=== PATIENT | female | born 2000 | race Caucasian/White ===

== ENCOUNTER 2021-08-30 08:43 | Emergency (ER) | payer OTHER, SELFPAY ==
[2021-08-30] VITALS (23 sets, daily range): BP systolic 68–151; BP diastolic 36–82; PULSE 100–140; RESP 4–35; TEMP 36.4; O2SAT 88–98
--- NOTE | 2021-08-30 08:45 | DI.RAD_ITS ---
Exam(s) XR PORTABLE CHEST AP EXAM: XR PORTABLE CHEST AP CLINICAL HISTORY: shortness of breath, wheeze. TECHNIQUE: 2D digital imaging was performed. COMPARISON: CR CHEST 2 VIEWS PA,LAT from 04/17/2013 FINDINGS: Single AP portable view. Heart size is upper normal. The mediastinum is not widened. Lungs are clear. No infiltrates nor obvious pleural effusions. IMPRESSION: No acute pulmonary findings on this single AP portable view of the chest. DATA REPOSITORY: RADIATION DOSE DELIVERED: All CT scans at this facility use at least one of these dose optimization techniques: automated exposure control; mA and/or kV adjustment per patient size (includes targeted e xams where dose is matched to clinical indication); or iterative reconstruction.
--- NOTE | 2021-08-30 08:46 | ED.GENADUL_ITS ---
Discharge Plan Disposition Patient Disposition: HOME Condition: Improving Discharge Details Clinical Impression: Exacerbation of reactive airway disease Primary Care Provider: Vaishali Park ED Provider: Ronnie Perez Home Meds and New Rx's Prescriptions: New prednisone 50 mg tablet 50 mg PO DAILY 5 Days Qty: 5 0RF montelukast [Singulair] 10 mg tablet 10 mg PO DAILY Qty: 30 0RF albuterol sulfate 90 mcg/actuation HFA aerosol inhaler 2 puff inhalation Q6H PRNQty: 6.7 0RF Continued cetirizine [Zyrtec] 10 mg tablet 10 mg PO DAILY Qty: 30 2RF albuterol sulfate 90 mcg/actuation HFA aerosol inhaler 2 puff inhalation Q6H PRN (Reason: shortness of breath or wheezing) Qty: 6.7 3RF dextroamphetamine-amphetamine [Adderall XR] 30 mg capsule,extended release 24hr 30 mg PO DAILY MDD 30MG Qty: 30 0RF sertraline 100 mg tablet 100 mg PO DAILY Qty: 90 4RF Rx Instructions: Take 1 tablet daily mupirocin 2 % ointment 1 applic topical TID PRN (Reason: skin irritation) Qty: 22 1RF Discharge Instructions Instructions: Reactive Airways Disease (ED) Additional Instructions: We will ask our care management team to arrange a follow-up for you in pulmonology clinic. Please begin Singulair as prescribed once daily for 30 days. Take prednisone as prescribed. May continue your inhaler if needed up to 4 times daily, as previously prescribed. I have prescribed you a new replacement inhaler as well. Your work-up in the emergency department included blood work, EKG, chest x-ray, and influenza/COVID test which was negative. Return to the emergency room for any acute concerns. Medical Decision Making This is a 21-year-old female with a history of mild reactive airway disease, with home rescue inhaler. Presents with 4 weeks of progressive onset mild wheeze that has been increasing over the past 2 to 3 days with increased use of home inhaler. She has not had a fever or productive cough. No leg pain, chest pain, or pain with breathing. She is not . Patient arrives with a pulse approximately 130, actively tachypneic with primarily expiratory wheezes. She is not hypoxic with an oxygenation on room air of 96%. Diagnosis includes exacerbation of reactive airway disease, bronchitis, must exclude/consider PE. The patient had IV access established, given parenteral steroids, magnesium, inhaled DuoNeb, and referred for laboratory and chest x- ray. A screening EKG was obtained. Chest x-ray is unremarkable. She has a slightly elevated white blood cell count 13, hematocrit 44, platelets 386. D-dimer is negative. Chemistries unremarkable. Flu/Covid negative. Patient is improved following medications. She states she feels better. She has some mild persistent tachycardia, but is able to oxygenate normally with the room air oxygenation of 94 to 95%. Peak flow was obtained by respiratory therapy at approximately 500. Patient does describe some chronicity to her reactive airway disease of at least 4 to 6-week. I will trial her on 30 days of Singulair in addition to a brief burst of systemic corticosteroids. I will refer her to pulmonology. She was last seen as a child in 2017. She is stable and improving at this time. HPI General Mode of arrival: ambulatory . Date/Time Provider Initiated Documentation: 08/30/21 08:45 . Limitations to Documentation: no limitations . Information obtained by: patient . History of Present Illness 21 year old F presents to the emergency department with the chief complaint of Asthma attack, described as moderate and similar to prior episodes, and is localized to the chest. Patient reports no radiation. Patient started experiencing this day(s) and it has been intermittent. Patient notes denies fever/chills. Patient did receive the following treatments prior to arrival, other (Home inhalers) Related Data Home Medications Medication Instructions Recorded Confirmed mupirocin 2 % topical ointment 1 applic TOPICAL TID PRN #22 g 02/09/21 08/30/21 sertraline 100 mg tablet 100 mg PO DAILY #90 tab 02/09/21 08/30/21 albuterol sulfate 90 mcg/actuation 2 puff INHALATION Q6H PRN #6.7 g 07/06/21 08/30/21 aerosol inhaler cetirizine 10 mg tablet (Zyrtec) 10 mg PO DAILY #30 tab-cap 07/06/21 08/30/21 dextroamphetamine-amphetamine ER 30 mg PO DAILY #30 cap MDD 30MG 07/06/21 08/30/21 30 mg 24hr capsule,extend release (Adderall XR) albuterol sulfate 90 mcg/actuation 2 puff INHALATION Q6H PRN #6.7 g 08/30/21 aerosol inhaler montelukast 10 mg tablet 10 mg PO DAILY #30 tab 08/30/21 (Singulair) prednisone 50 mg tablet 50 mg PO DAILY 5 Days #5 tab 08/30/21 Previous Rx's Medication Instructions Recorded mupirocin 2 % topical ointment 1 applic TOPICAL TID PRN #22 g 02/09/21 sertraline 100 mg tablet 100 mg PO DAILY #90 tab 02/09/21 albuterol sulfate 90 mcg/actuation 2 puff INHALATION Q6H PRN #6.7 g 07/06/21 aerosol inhaler dextroamphetamine-amphetamine ER 30 mg PO DAILY #30 cap MDD 30MG 07/06/21 30 mg 24hr capsule,extend release (Adderall XR) albuterol sulfate 90 mcg/actuation 2 puff INHALATION Q6H PRN #6.7 g 08/30/21 aerosol inhaler montelukast 10 mg tablet 10 mg PO DAILY #30 tab 08/30/21 (Singulair) prednisone 50 mg tablet 50 mg PO DAILY 5 Days #5 tab 08/30/21 Allergies Allergy/AdvReac Type Severity Reaction Status Date / Time amoxicillin [From Augmentin] Allergy Hives Unverified 08/30/21 09:29 clavulanic acid Allergy Hives Unverified 08/30/21 09:29 [From Augmentin] Review of Systems Narrative: See HPI PFSH All Active Problems (Updated 08/30/21 @ 10:09 by Ronnie Perez MD) Exacerbation of reactive airway disease (Acute) ADHD (attention deficit hyperactivity disorder) (Chronic) IBS (irritable bowel syndrome) (Chronic) Generalized anxiety disorder (Acute) Major depressive disorder (Chronic) Obesity (Chronic) Nexplanon in place (Chronic) Inserted 2018 at [facility] Allergic rhinitis (Acute) Medical History Pilonidal abscess of lorri cleft Surgical History S/P bilateral breast reduction (05/16/17) Family History Mother Asthma Hypertension Alcohol abuse Father Alcohol abuse Depression Osteomalacia Substance abuse Sister No problems noted. Maternal Grandfather Colon cancer Maternal Grandmother No problems noted. Paternal Grandfather No problems noted. Paternal Grandmother No problems noted. Social History Smoking/Tobacco Use Status: Never Second Hand Exposure: Yes Smoking risk assessment performed?: Yes Alcohol Intake: current Alcohol Intake frequency: holidays/special occasions only Alcohol type: hard liquor Drug use: Daily Substance use type: marijuana Caregiver/Support person: No Household members: other Details: 4 Housing: house Communication Needs: None Do you need help understanding health information?: Rarely Pets and animals: Yes Sexually active: No Do you think of yourself as: bisexual Current gender identity: female What is your relationship status?: never How often do you talk on the phone with friends or family?: three or more times per week How often do you get together with friends or relatives?: three or more times per week How often do you attend scientology or taoism services?: decline to answer Do you belong to any clubs or organized social groups?: no Panel score (0-1 are the most socially isolated patients): 1 What type of physical activity do you participate in: none Duration: decline to answer Frequency: decline to answer Consuelo/Nondenominational: Agnostic Special consuelo needs: No Seatbelt use: always Helmet use: Yes Helmet use: always Drive intox or ride w/intox driver 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 Pleasant, well groomed, interactive. HEAD: Normocephalic, atraumatic ENT: Mucous membranes moist, oropharynx unremarkable, External ear exam unremarkable EYES: PERRL, EOMI NECK: Full ROM, no SUE, no menigismus CHEST/RESP: Nontender, bilateral end expiratory wheeze, subtle inspiratory wheeze initial exam CARDIOVASCULAR: Regular and tachycardic, no murmur, rub malvin. 2+ Rad pulse bilateral ABDOMEN: Soft, nontender, no mass. +Bowel sounds EXT: Full ROM, no edema, no rash Neuro: Grossly normal neurologic exam, conversant, interactive. Psych: Speech fluent, thoughts congruent, affect normal
--- NOTE | 2021-08-30 09:00 | RT.EKG_ITS ---
APPROVED REPORT Exam: Resting ECG Reason for Exam: shortness of breath Patient Location: E HR:115 bpm ECG Measurements Heart Rate 115 AXIS CA 130 P 52 QRSd 93 QRS 70 QT 336 T 9 QTc 464 Conclusion Sinus tachycardia...rate> 99
[2021-08-30] MEDS: MAGNESIUM SULFATE 2 GM/50 ML BAG IVPB (09:11)
[2021-08-30] MEDS: Albuterol/Ipratropium 3 ML UPD VIAL UPD ×2 (09:28→09:56)
[2021-08-30] MEDS: methylPREDNISolone SUCC 125 MG VIAL IVP (09:28)
[2021-08-30 09:35] LABS: Abs Immature Grans 0.04 10^3/uL (0.0-0.06); Absolute Basophil Count 0.17 10^3/uL (0.0-0.2); Absolute Lymphocyte Count 2.41 10^3/uL (1.2-3.4); Absolute Monocyte Count 0.66 10^3/uL (0.1-0.8); Absolute Neutrophil Count 7.46 10^3/uL (1.2-6.7); Basophils % 1.3; Eosinophils % 18.8; HCT 44.3 % (36.0-46.0); HGB 14.2 g/dL (11.2-15.7); Immature Grans % 0.3; Lymphocytes % 18.2; MCHC 32.1 % (32.0-36.0); MCV 84.2 fL (80-95); MPV 9.8 fL (8.0-11.0); Neutrophils % 56.4; Nucleated RBC 0 %; Platelet Count 386 10^3/uL (130-400); RBC 5.26 10^6/uL (3.93-5.22); RDW 13.3 % (11.7-14.6); RDW-SD 41.3 fL; WBC 13.22 10^3/uL (4.4-10.8)
[2021-08-30 09:37] LABS: Absolute Eosinophil Count 2.49 10^3/uL (0.0-0.7)
[2021-08-30 09:49] LABS: Diff Comment Agrees w/ Instrument; RBC Morphology Normal
[2021-08-30 09:55] LABS: ALT 19 U/L (14-59); AST 13 U/L (15-37); Alkaline Phosphatase 73 U/L (46-116); Anion Gap 9.1 mmol/L (3-11); BUN 12 mg/dL (7-18); Bilirubin, Total 0.7 mg/dL (0.2-1.0); CO2 23.9 mmol/L (21.0-32.0); CREATININE 0.9 mg/dL (0.55-1.02); Calcium 8.9 mg/dL (8.5-10.1); Chloride 107 mmol/L (98-107); Glucose 89 mg/dL (74-106); Potassium 3.8 mmol/L (3.5-5.1); Sodium 140 mmol/L (136-145); Total Protein 8.3 g/dL (6.4-8.2)
[2021-08-30 10:07] LABS: D-Dimer 223 ng/mlFEU (<500)
--- NOTE | 2021-08-30 10:17 | NUR.NOTE ---
Nursing Note: Pt info given to Pulmonology & care management to be seen in a few weeks for chronic VS acute asthma. Jessica, ED
[2021-08-30] MEDS: Normal Saline 1,000 ML 1000 ML IV (10:30)
[2021-08-30 10:34] LABS: Bilirubin Negative (Negative); Blood Negative (Negative); Clarity Clear (Clear); Glucose Negative (Negative); Ketones Negative (Negative); Leukocyte Esterase Negative (Negative); Nitrite Negative (Negative); Urobilinogen 0.2 EU/dL (Up TO 0.2)
[2021-08-30 10:39] LABS: COVID-19 PCR Negative (Negative); Influenza A PCR Negative (Negative); Influenza B PCR Negative (Negative); RSV PCR Negative (Negative)
[2021-08-30 10:41] LABS: Source Nasopharynx
[2021-08-30] MEDS: Levalbuterol 1.25 MG/3 ML UPD VIAL UPD (11:13)
[2021-08-30] MEDS: predniSONE 20 MG TAB (13:09)
[2021-08-30] MEDS: predniSONE 10 MG TAB (13:10)
== END 2021-08-30 13:30 | disposition home or self-care (01) ==
PROVIDERS: Emergency Provider Emergency Medicine; PCP Nurse Practitioner Family
DX: J45.901 Unspecified asthma with (acute) exacerbation (principal); R00.0 Tachycardia, unspecified; R06.02 Shortness of breath
CPT/HCPCS: 36415; 80053; 81025; 87637; 93005; 94640; 96361; 96365; 96366; 96375; 99284; 99285; 71045; 81003; 83735; 85025; 85379; 93010; J2930; J7512; J7614; J7620

== ENCOUNTER 2024-05-03 15:42 | Inpatient (IN) | payer OTHER, SELFPAY ==
[2024-05-03] VITALS (41 sets, daily range): BP systolic 141–160; BP diastolic 80–98; PULSE 113–147; RESP 15–32; TEMP 36.4–37.4; O2SAT 89–97
[2024-05-03] MEDS: Dexamethasone 4 MG TAB 8 MG PO (16:22)
[2024-05-03] MEDS: Albuterol/Ipratropium 3 ML UPD VIAL UPD ×6 (16:23→17:28)
--- NOTE | 2024-05-03 17:46 | DI.RAD_ITS ---
Exam(s) XR CHEST 2V PA LATERAL EXAM: XR CHEST 2V PA LATERAL CLINICAL HISTORY: sob TECHNIQUE: 2D digital imaging was performed. Two views. COMPARISON: CR XR PORTABLE CHEST AP from 08/30/2021 FINDINGS: HEART: Normal size. Aorta: Not dilated. PULMONARY VASCULATURE: Normal. MEDIASTINUM: Unremarkable. LUNGS: Increased density in the right perihilar region with streaky atelectasis extending anterolater ally. PLEURAL SPACE: No pleural effusion or pneumothorax. BONE:Unremarkable for age. SOFT TISSUES: Unremarkable. IMPRESSION: Right perihilar infiltrate/atelectasis. DATA REPOSITORY: RADIATION DOSE DELIVERED:
[2024-05-03] MEDS: Azithromycin 250 MG TAB 500 MG PO (18:33)
[2024-05-03 18:58] LABS: BE (Venous) -2 mmol/L (-2-3); HCO3 (Venous) 22 mmol/L (23-28); O2 Sat (Venous) 87 %; TCO2 (Venous) 20 mmol/L (24-29); pCO2 (Venous) 32 mmHg (41-51); pH (Venous) 7.44 (7.31-7.41); pO2 (Venous) 49 mmHg
[2024-05-03 18:59] LABS: Abs Immature Grans 0.06 10^3/uL (0.0-0.06); Absolute Eosinophil Count 0.25 10^3/uL (0.0-0.7); Absolute Lymphocyte Count 0.71 10^3/uL (1.2-3.4); Absolute Monocyte Count 0.32 10^3/uL (0.1-0.8); Basophils % 0.4 %; Eosinophils % 1.8 %; HCT 39.8 % (36.0-46.0); HGB 13.1 g/dL (11.2-15.7); Immature Grans % 0.4 %; Lymphocytes % 5.2 %; MCH 26.9 pg (27.0-33.0); MCHC 32.9 % (32.0-36.0); MCV 82 fL (80-95); MPV 9.4 fL (8.0-11.0); Monocytes % 2.3 %; Neutrophils % 89.9 %; Platelet Count 293 10^3/uL (130-400); RBC 4.87 10^6/uL (3.93-5.22); RDW-SD 41.3 fL; WBC 13.72 10^3/uL (4.4-10.8)
[2024-05-03] MEDS: MAGNESIUM SULFATE 2 GM/50 ML BAG IVINF (18:59)
[2024-05-03 19:04] LABS: Absolute Basophil Count 0.05 10^3/uL (0.0-0.2); Absolute Neutrophil Count 12.33 10^3/uL (1.2-6.7)
[2024-05-03 19:10] LABS: Anion Gap 12.4 mmol/L (3-11); BUN 8 mg/dL (7-18); CO2 21.6 mmol/L (21.0-32.0); CREATININE 0.9 mg/dL (0.55-1.02); Chloride 106 mmol/L (98-107); Estimated GFR 90.98 (mL/min/1.73m2); Glucose 158 mg/dL (74-106); Sodium 140 mmol/L (136-145)
--- NOTE | 2024-05-03 19:26 | ED.GENADUL_ITS ---
Discharge Plan Disposition Patient Disposition: Admit to [facility] Condition: Fair Discharge Details Chief Complaint: GenMedical Clinical Impression: Acute hypoxic respiratory failure, Acute exacerbation of moderate persistent extrinsic asthma, Pneumonia Primary Care Provider: Musa Choudhary ED Provider: Clarence Murillo Home Meds and New Rx's Prescriptions: Continued fluticasone propion-salmeterol [Advair Diskus] 250-50 mcg/dose blister with device 1 inh inhalation BID Qty: 60 5RF No Action cetirizine [Zyrtec] 10 mg tablet 10 mg PO DAILY Qty: 30 Nexplanon 68 mg implant 1 implant subdermal ONCE Rx Instructions: as a single dose trazodone 50 mg tablet 50 mg PO QHS Qty: 90 0RF triamcinolone acetonide 0.1 % cream 1 applic topical BID PRN (Reason: dermatitis) Qty: 30 0RF Rx Instructions: apply to affected area 2x daily x 2 week and as needed sertraline 100 mg tablet 100 mg PO DAILY Qty: 90 4RF Rx Instructions: Take 1 tablet daily montelukast [Singulair] 10 mg tablet 10 mg PO DAILY Qty: 90 4RF albuterol sulfate 90 mcg/actuation HFA aerosol inhaler 2 puff inhalation Q6H PRN (Reason: shortness of breath or wheezing) Qty: 6.7 3RF HPI General Date/Time Provider Initiated Documentation: 05/03/24 15:59 . Limitations to Documentation: no limitations . Information obtained by: patient . HPI Narrative: 44-year-old female with past medical history of depression, asthma presents for evaluation of shortness of breath and cough. Reports that her partner has also been sick at home for the last week. Her symptoms started 2 days ago. No known fever. She reports chest tightness. She thinks that her steroid inhaler might of ran out yesterday. She has been using her albuterol inhaler without much relief. She does report prior hospitalizations with her asthma. No prior intubations. Her cough symptoms are associated with nasal congestion, sore throat Related Data Home Medications ?Medication ?Instructions ?Recorded ?Confirmed sertraline 100 mg tablet 100 mg PO DAILY #90 tabs 02/09/21 05/03/24 cetirizine 10 mg tablet (Zyrtec) 10 mg PO DAILY #30 tab-caps 07/06/21 05/03/24 montelukast 10 mg tablet 10 mg PO DAILY #90 tabs 09/07/21 05/03/24 (Singulair) etonogestrel 68 mg subdermal 1 implant subdermal ONCE 10/04/21 05/03/24 implant (Nexplanon) trazodone 50 mg tablet 50 mg PO QHS #90 tabs 10/04/21 05/03/24 triamcinolone acetonide 0.1 % 1 applic topical BID PRN 10/16/23 05/03/24 topical cream dermatitis #30 grams albuterol sulfate 90 mcg/actuation 2 puff inhalation Q6H PRN 02/11/24 05/03/24 aerosol inhaler shortness of breath or wheezing #6.7 grams fluticasone 250 mcg-salmeterol 50 1 inh inhalation BID #60 ea 05/03/24 mcg/dose blistr powdr for inhalation (Advair Diskus) Previous Rx's ?Medication ?Instructions ?Recorded sertraline 100 mg tablet 100 mg PO DAILY #90 tabs 02/09/21 montelukast 10 mg tablet 10 mg PO DAILY #90 tabs 09/07/21 (Singulair) trazodone 50 mg tablet 50 mg PO QHS #90 tabs 10/04/21 triamcinolone acetonide 0.1 % 1 applic topical BID PRN 10/16/23 topical cream dermatitis #30 grams albuterol sulfate 90 mcg/actuation 2 puff inhalation Q6H PRN 02/11/24 aerosol inhaler shortness of breath or wheezing #6.7 grams fluticasone 250 mcg-salmeterol 50 1 inh inhalation BID #60 ea 05/03/24 mcg/dose blistr powdr for inhalation (Advair Diskus) Allergies Allergy/AdvReac Type Severity Reaction Status Date / Time amoxicillin (From Augmentin) Allergy Hives Unverified 05/03/24 15:49 clavulanic acid (From Allergy Hives Unverified 05/03/24 15:49 Augmentin) General Stated Complaint: GenMedical LEAH: 3 Exam Narrative Exam Narrative: Review of Systems: All systems reviewed & are unremarkable except as noted in HPI and below Well-developed, no acute distress NCAT RRR no murmur Mild tachypnea diffuse wheezing, poor air movement, no hypoxia Nondistended abdomen Extremities w/o Edema Course Vital Signs Vital signs: Vital Signs Temperature 36.4 C L 05/03/24 15:50 Pulse 113 H 05/03/24 15:50 Respiratory Rate 18 05/03/24 15:50 Blood Pressure 141/95 H 05/03/24 15:50 Pulse Oximetry 94 05/03/24 15:50 Temperature 36.4 C L 05/03/24 15:50 Temperature Source Oral 05/03/24 15:50 Pulse 136 H 05/03/24 19:01 Pulse 138 H 05/03/24 19:01 Respiratory Rate 24 05/03/24 19:08 Respiratory Effort Normal, Non-Labored, Short of Breath 05/03/24 19:08 Respiratory Depth Normal 05/03/24 19:08 Blood Pressure 160/80 H 05/03/24 19:08 Blood Pressure Mean 106 05/03/24 19:08 Blood Pressure Position Sitting 05/03/24 19:08 Pulse Oximetry 94 05/03/24 19:08 Oxygen Delivery Method Nasal Cannula 05/03/24 19:08 Oxygen Flow Rate 3 05/03/24 19:08 Pain Level 4 05/03/24 15:50 Lab/Test Results Lab/Test Results: Laboratory Tests Range/Units 05/03/24 18:53 WBC (4.4-10.8) 10^3/uL 13.72 H RBC (3.93-5.22) 10^6/uL 4.87 Hgb (11.2-15.7) g/dL 13.1 Hct (36.0-46.0) % 39.8 MCV (80-95) fL 82 MCH (27.0-33.0) pg 26.9 L MCHC (32.0-36.0) % 32.9 RDW (11.7-14.6) % 14.0 Plt Count (130-400) 10^3/uL 293 MPV (8.0-11.0) fL 9.4 Immature Gran % % 0.4 Neutrophils % % 89.9 Lymphocytes % % 5.2 Monocytes % % 2.3 Eosinophils % % 1.8 Basophils % % 0.4 Nucleated RBC % (0.0-0.3) % 0.0 Absolute Neutrophils (1.2-6.7) 10^3/uL 12.33 H Absolute Lymphocytes (1.2-3.4) 10^3/uL 0.71 L Absolute Monocytes (0.1-0.8) 10^3/uL 0.32 Absolute Eosinophils (0.0-0.7) 10^3/uL 0.25 Absolute Basophils (0.0-0.2) 10^3/uL 0.05 VBG pH (7.31-7.41) 7.44 H VBG pCO2 (41-51) mmHg 32 L VBG pO2 mmHg 49 VBG HCO3 (23-28) mmol/L 22 L VBG Total CO2 (24-29) mmol/L 20 L VBG O2 Saturation % 87 VBG Base Excess (-2-3) mmol/L -2 Sodium (136-145) mmol/L 140 Potassium (3.5-5.1) mmol/L 3.0 L Chloride (98-107) mmol/L 106 Carbon Dioxide (21.0-32.0) mmol/L 21.6 Anion Gap (3-11) mmol/L 12.4 H BUN (7-18) mg/dL 8 Creatinine (0.55-1.02) mg/dL 0.9 Est GFR (CKD-EPI 2020) (mL/min/1.73m2) 90.98 Glucose (74-106) mg/dL 158 H Calcium (8.5-10.1) mg/dL 9.0 Medical Decision Making Emergent evaluation of cough and shortness of breath. Patient does have history of moderate persistent asthma. During this acute illness it seems that she has not been able to use the steroid inhaler twice daily as she discovered today it was empty. She has been using albuterol as needed. Initial concerns for pneumonia, viral illness, asthma exacerbation. Will start with steroids, bronchodilator. Viral testing and chest x-ray. After first round of 3 DuoNeb's, the patient still has persistent wheezing. Sats hovering around 90%. Improved air movement. Will give additional nebulizer treatment. Oral steroids have been given. Her viral testing is ne gative. Chest x-ray reviewed and independently interpreted, there is a right-sided consolidation noted. Will give first dose of azithromycin. After completing second round of albuterol, the patient is having desaturations down to 87%. At this time we will put on supplemental oxygen. Place IV, give magnesium and IV Rocephin. Will admit to the hospital for asthma exacerbation pneumonia. Quality:[facility] Health Related Social Needs: No Data to Display Critical Care Time Critical Care Time Critical Care Time: Yes Total Critical Care Time: 35 Attestation: CRITICAL CARE Upon my evaluation, this patient had a high probability of imminent or life- threatening deterioration due to asthma exacerbation, hypoxia which required my direct attention, intervention, and personal management. I have personally provided 35 minutes of critical care time exclusive of time spent on separately billable procedures. Time includes review of laboratory data, radiology results, discussion with consultants, and monitoring for potential decompensation. Interventions were performed as documented above [facility] All Active Problems (Updated 05/03/24 @ 21:21 by Clarence Murillo MD) Acute exacerbation of moderate persistent extrinsic asthma (Acute) Acute hypoxic respiratory failure (Acute) Pneumonia (Acute) Asthma (Chronic) ADHD (attention deficit hyperactivity disorder) (Chronic) IBS (irritable bowel syndrome) (Chronic) Generalized anxiety disorder (Chronic) Major depressive disorder (Chronic) Insomnia (Chronic) Obesity (Chronic) Nexplanon in place (Chronic) Inserted [facility] at [facility] Allergic rhinitis (Chronic) Medical History Pilonidal abscess of cleft Surgical History S/P bilateral breast reduction (05/16/17) Family History Mother Asthma Hypertension Alcohol abuse Father Alcohol abuse Depression Osteomalacia Substance abuse Sister No problems noted. Maternal Grandfather Colon cancer Maternal Grandmother No problems noted. Paternal Grandfather No problems noted. Paternal Grandmother No problems noted. 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 Pets and animals: Yes Pets and animals: cat(s) Sexually active: Yes Do you think of yourself as: lesbian/avila/homosexual Current gender identity: neither exclusively male nor female What is your relationship status?: living with partner How often do you talk on the phone with friends or family?: three or more times per week How often do you get together with friends or relatives?: three or more times per week How often do you attend uatsdin or sabianist services?: decline to answer Do you belong to any clubs or organized social groups?: no Panel score (0-1 are the most socially isolated patients): 2 What type of physical activity do you participate in: none Duration: decline to answer Frequency: decline to answer Consuelo/Worship: Other Special consuelo needs: No Seatbelt use: always Helmet use: Yes Helmet use: always Drive intox or ride w/intox 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: No Do you feel safe at home: Yes Do you feel safe in your relationship?: Yes Female Reproductive History Menstrual control method: implanted (Nexplanon, inserted 2020 at [facility]) History History 0 Para Hx # Term Pregnancies Multiple births Hx # Pregnancies Ectopic pregnancies AB induced Hx Number of Living Children AB spontaneous PAWSS Have you Been Recently Intoxicated or Drunk Within the Last 30 days?: No Have you Ever Experienced Previous Episodes of Alcohol Withdrawal?: No Have you ever Experienced Withdrawal Seizures?: No Have you ever Experienced Delirium Tremens(DT)s?: No Have you ever undergone Alcohol Rehabilitation Treatment (i.e, inpt ot outpatient treatment programs)?: No Have you ever Experienced Blackouts?: No Have you ever Combined Alcohol with other Downers within the last 90 days?: No Have you ever Combined Alcohol with any other Substance of Abuse during the last 90 days?: No Positive Blood Alcohol level on Presentation? [PCS.BAL]: No Evidence of Increased Autonomic Activity (i.e. HR>120, tremor, sweating, agitation, nausea)?: No Result: 0
[2024-05-03] MEDS: POTASSIUM CHLORIDE 10 MEQ/100 ML BAG 100 MEQ IV_INF (19:40)
[2024-05-03] MEDS: cefTRIAXone 1 GM/50 ML BAG IVPB (19:40)
--- NOTE | 2024-05-03 20:23 | HPE_ITS ---
Date of service: 05/03/24 Time of Service: 20:23 Assessment and Plan Assessment and plan (1) Pneumonia: Start date: 05/03/24 Status: Acute Assessment and plan: This is a 24-year-old lady who has exacerbation of asthma and right hilar pneumonia. She is hypoxic which is new and is still having difficulty breathing despite aggressive treatment of her bronchospasm. She will be admitted for IV antibiotic therapy, IV Solu-Medrol and aggressive nebulizer treatments. Long- term she should return to her controller therapy with rescue therapy. She also should consider stopping smoking of any substance. She is a full code. Qualifiers: Laterality: right Lung location: unspecified part of lung Pneumonia type: due to unspecified organism Qualified Code(s): J18.9 - Pneumonia, unspecified organism (2) Acute hypoxic respiratory failure: Start date: 05/03/24 Status: Acute Assessment and plan: Patient has had hypoxemia with respiratory alkalosis by VBG. Continue aggressive treatment of pneumonia and exacerbation of asthma and the should clear. Long-term she will most likely not need oxygen. (3) Acute exacerbation of moderate persistent extrinsic asthma: Start date: 05/03/24 Status: Acute Assessment and plan: IV Solu-Medrol with aggressive nebulizer treatments long-term convert back to controller therapy with rescue therapy. Follow-up pulmonology with last visits canceled in 2022 and last seen in November 2021. (4) Major depressive disorder: Status: Chronic Assessment and plan: Continue outpatient medical therapy. Qualifiers: Active/Remission status: in remission of unspecified degree Major depression recurrence: recurrent Qualified Code(s): F33.40 - Major depressive disorder, recurrent, in remission, unspecified History of Present Illness History of Present Illness Chief Complaint: Recent URI with asthma worsening off controller therapy. Narrative: This is a 24-year-old female who has a history of asthma for last 2 years on treatment with daily THC use. She also has childhood history of atopy but was not on asthma treatment. She now is on controller therapy which she has recently run out of and rescue therapy. There is no secondary smoke in her life as a child or presently. Her partner did begin to have cold symptoms about 3 days prior to patient's presentation and patient began have symptoms 1 day prior to presentation. She has had a cough but no significant fever but since she had run out of her controller therapy, she was having increasing difficulty breathing. In the ED she was found to have exacerbation of asthma with poor air movement, speaking and short sentences and audible wheezing which only partially cleared with multiple treatments of DuoNebs. She was not adequately responding for then to therapy after more than 2 hours in the ED was requiring oxygen to maintain a pulse oximeter of about 90% falling down below 90% initially. She was becoming more comfortable though still dyspneic with exertion and requiring O2 at the time she was admitted to [facility] for exacerbation of her asthma. She also was found to have a right hilar pneumonia by chest x-ray. Her WBC was slightly elevated but she did not have any fever documented in the ED or at home. She will be admitted for continued IV antibiotic therapy and oxygen supplementation with aggressive nebulizer treatments with IV Solu-Medrol. She is a full code. Review of Systems Narrative: 13 point review of systems otherwise unrevealing or stable. PFSH All Active Problems Acute exacerbation of moderate persistent extrinsic asthma (Acute) Acute hypoxic respiratory failure (Acute) Pneumonia (Acute) Asthma (Chronic) ADHD (attention deficit hyperactivity disorder) (Chronic) IBS (irritable bowel syndrome) (Chronic) Generalized anxiety disorder (Chronic) Major depressive disorder (Chronic) Insomnia (Chronic) Obesity (Chronic) Nexplanon in place (Chronic) Inserted [facility] at [facility] Allergic rhinitis (Chronic) Medical History Pilonidal abscess of cleft Surgical History S/P bilateral breast reduction (05/16/17) Family History Mother Asthma Hypertension Alcohol abuse Father Alcohol abuse Depression Osteomalacia Substance abuse Sister No problems noted. Maternal Grandfather Colon cancer Maternal Grandmother No problems noted. Paternal Grandfather No problems noted. Paternal Grandmother No problems noted. 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 Pets and animals: Yes Pets and animals: cat(s) Sexually active: Yes Do you think of yourself as: lesbian/avila/homosexual Current gender identity: neither exclusively male nor female What is your relationship status?: living with partner How often do you talk on the phone with friends or family?: three or more times per week How often do you get together with friends or relatives?: three or more times per week How often do you attend mormonism or sabianist services?: decline to answer Do you belong to any clubs or organized social groups?: no Panel score (0-1 are the most socially isolated patients): 2 What type of physical activity do you participate in: none Duration: decline to answer Frequency: decline to answer Consuelo/Cheondoism: Other Special consuelo needs: No Seatbelt use: always Helmet use: Yes Helmet use: always Drive intox or ride w/intox hi low truck driver: No Do you feel safe at home: Yes Do you feel safe in your relationship?: Yes Female Reproductive History Menstrual control method: implanted (Nexplanon, inserted [facility] at [facility]) History History 2 0 Para Hx # Term Pregnancies Multiple births Hx # Pregnancies Ectopic pregnancies AB induced Hx Number of Living Children AB spontaneous Meds Allergies and Home Medications Allergies Allergy/AdvReac Type Severity Reaction Status Date / Time amoxicillin (From Augmentin) Allergy Hives Unverified 05/03/24 15:49 clavulanic acid (From Allergy Hives Unverified 05/03/24 15:49 Augmentin) Home Medications ?Medication ?Instructions ?Recorded ?Confirmed ?Type sertraline 100 mg tablet 100 mg PO DAILY #90 tabs 02/09/21 05/03/24 Rx cetirizine 10 mg tablet (Zyrtec) 10 mg PO DAILY #30 tab-caps 07/06/21 05/03/24 History montelukast 10 mg tablet 10 mg PO DAILY #90 tabs 09/07/21 05/03/24 Rx (Singulair) etonogestrel 68 mg subdermal 1 implant subdermal ONCE 10/04/21 05/03/24 History implant (Nexplanon) trazodone 50 mg tablet 50 mg PO QHS #90 tabs 10/04/21 05/03/24 Rx triamcinolone acetonide 0.1 % 1 applic topical BID PRN 10/16/23 05/03/24 Rx topical cream dermatitis #30 grams albuterol sulfate 90 mcg/actuation 2 puff inhalation Q6H PRN 02/11/24 05/03/24 Rx aerosol inhaler shortness of breath or wheezing #6.7 grams fluticasone 250 mcg-salmeterol 50 1 inh inhalation BID #60 ea 05/03/24 Rx mcg/dose blistr powdr for inhalation (Advair Diskus) Exam Narrative Exam Narrative: General: Patient appears appropriate for age, in moderate distress. In shorter sentences during conversation but no tachypnea at rest. She is alert and oriented x 3. She is moderately obese. HEENT: Normocephalic, eyes with pupils equal and reactive to light symmetrically, extraocular movement intact and sclera anicteric. Oropharynx with normal mucosa and good dentition. Neck: Supple without JVD. Back: Normal posture without CVA tenderness. Lungs: Decreased aeration diffusely with scant inspiratory coarse crackles nonfocal lysing. No focal rales or rhonchi. Increased expiratory phase with expiratory wheeze. Breast: Exam deferred. Heart: Regular rate and rhythm with no murmurs or gallops appreciated. Abdomen: Obese contour, soft and nontender to palpation with no palpable hepatosplenomegaly. Genitalia/rectal: Exam deferred. Extremities: Without clubbing, cyanosis or pitting edema. Skin: Normal color, warm and dry. Neuro: Cranial nerves II through XII gross intact, no focalized motor deficits and no tremor. Psych: Normal affect and mood. No abnormal thought processes. Remote and recent memory grossly intact. Results Imaging Imaging Studies: EXAM: XR CHEST 2V PA LATERAL CLINICAL HISTORY: sob TECHNIQUE: 2D digital imaging was performed. Two views. COMPARISON: CR XR PORTABLE CHEST AP from 08/30/2021 FINDINGS: HEART: Normal size. Aorta: Not dilated. PULMONARY VASCULATURE: Normal. MEDIASTINUM: Unremarkable. LUNGS: Increased density in the right perihilar region with streaky atelectasis extending anterolaterally. PLEURAL SPACE: No pleural effusion or pneumothorax. BONE:Unremarkable for age. SOFT TISSUES: Unremarkable. IMPRESSION: Right perihilar infiltrate/atelectasis. Labs 05/03/24 18:53 05/03/24 18:53 Labs: Laboratory Results - last 24 hr 05/03/24 18:53 WBC 13.72 H RBC 4.87 Hgb 13.1 Hct 39.8 MCV 82 MCH 26.9 L MCHC 32.9 RDW 14.0 Plt Count 293 MPV 9.4 Immature Gran % 0.4 Neutrophils % 89.9 Lymphocytes % 5.2 Monocytes % 2.3 Eosinophils % 1.8 Basophils % 0.4 Nucleated RBC % 0.0 Absolute Neutrophils 12.33 H Absolute Lymphocytes 0.71 L Absolute Monocytes 0.32 Absolute Eosinophils 0.25 Absolute Basophils 0.05 VBG pH 7.44 H VBG pCO2 32 L VBG pO2 49 VBG HCO3 22 L VBG Total CO2 20 L VBG O2 Saturation 87 VBG Base Excess -2 Sodium 140 Potassium 3.0 L Chloride 106 Carbon Dioxide 21.6 Anion Gap 12.4 H BUN 8 Creatinine 0.9 Est GFR (CKD-EPI 2020) 90.98 Glucose 158 H Calcium 9.0 Last Vital Signs Temp 36.4 C L 05/03/24 15:50 Pulse 136 H 05/03/24 19:01 Resp 24 05/03/24 19:08 BP 160/80 H 05/03/24 19:08 Pulse Ox 94 05/03/24 19:08 PAWSS Have you Been Recently Intoxicated or Drunk Within the Last 30 days?: No Have you Ever Experienced Previous Episodes of Alcohol Withdrawal?: No Have you ever Experienced Withdrawal Seizures?: No Have you ever Experienced Delirium Tremens(DT)s?: No Have you ever undergone Alcohol Rehabilitation Treatment (i.e, inpt ot outpatient treatment programs)?: No Have you ever Experienced Blackouts?: No Have you ever Combined Alcohol with other Downers within the last 90 days?: No Have you ever Combined Alcohol with any other Substance of Abuse during the last 90 days?: No Positive Blood Alcohol level on Presentation? [PCS.BAL]: No Evidence of Increased Autonomic Activity (i.e. HR>120, tremor, sweating, agitation, nausea)?: No Result: 0 Time Spent Time spent with Patient: >75 minutes Time was spent: preparing to see the patient(eg.review tests), obtaining and/or reviewing separately otained hiistory, ordering medications,tests, procedures, indepentently interpreting results and counseling the patient
[2024-05-03 21:28] LABS: Bilirubin Negative (Negative); Blood Negative (Negative); Clarity Clear (Clear); Glucose Negative (Negative); Ketones Negative (Negative); Leukocyte Esterase Negative (Negative); Nitrite Negative (Negative); Urobilinogen 0.2 mg/dL (Up to 0.2)
[2024-05-03 21:52] LABS: COVID-19 PCR Negative (Negative); Influenza A PCR Negative (Negative); Influenza B PCR Negative (Negative); RSV PCR Negative (Negative)
[2024-05-03 21:55] LABS: Source Nasopharynx
--- NOTE | 2024-05-03 22:23 | W.PC.ACHO ---
Registration Status: Primary Language: Preferred Language: ED Information & Data Chief Complaint GenMedical 05/03/24 19:31 Triage Note Patient with hx of asthma 05/03/24 15:50 began having respiratory sx yesterday - SOB, sore throat , drippy nose, body aches, wheezing, productive cough with yellow/green phlegm, coughing caused her to vomit . Has been using albuterol inhaler (probably too much she says). Medical / Surgical History (Last Reviewed 05/03/24 @ 20:27 by Marcos Phillips) Pilonidal abscess of lorri cleft (Last Reviewed 05/03/24 @ 20:27 by Marcos Phillips) S/P bilateral breast reduction (05/16/17) Most Recent Vital Signs Temperature 37.4 C 05/03/24 21:38 Temperature Source Oral 05/03/24 15:50 Pulse 126 H 05/03/24 21:41 Pulse Rhythm Regular 05/03/24 21:38 Pulse 123 H 05/03/24 21:20 Respiratory Rate 24 05/03/24 21:41 Respiratory Effort Short of Breath 05/03/24 21:38 Respiratory Depth Shallow 05/03/24 21:38 Respiratory Pattern Tachypnea 05/03/24 21:38 Blood Pressure 145/98 H 05/03/24 21:38 Blood Pressure Mean 99 05/03/24 19:16 Blood Pressure Position Sitting 05/03/24 19:08 Pulse Oximetry 90 L 05/03/24 21:41 Oxygen Delivery Method Nasal Cannula 05/03/24 21:38 Oxygen Flow Rate 4 05/03/24 21:38 Pain Level 0 05/03/24 21:38 Allergies amoxicillin (From Augmentin) Allergy (Unverified 05/03/24 15:49) Hives clavulanic acid (From Augmentin) Allergy (Unverified 05/03/24 15:49) Hives Precautions Isolation PUI 05/03/24 15:52 IV IV Catheter Type [Left Saline Lock Antecubital] IV Catheter Gauge [Left 20 Antecubital] Diet Orders Category Date Time Status Regular/Normal [DIET] Nutrition 05/04/24 Breakfast Ordered Diagnostics 05/03/24 05/03/24 05/03/24 Range/Units 21:13 20:00 18:53 WBC 13.72 H (4.4-10.8) 10^3/uL RBC 4.87 (3.93-5.22) 10^6/uL Hgb 13.1 (11.2-15.7) g/dL Hct 39.8 (36.0-46.0) % MCV 82 (80-95) fL MCH 26.9 L (27.0-33.0) pg MCHC 32.9 (32.0-36.0) % RDW 14.0 (11.7-14.6) % Plt Count 293 (130-400) 10^3/uL MPV 9.4 (8.0-11.0) fL Immature Gran % 0.4 % Neutrophils % 89.9 % Lymphocytes % 5.2 % Monocytes % 2.3 % Eosinophils % 1.8 % Basophils % 0.4 % Nucleated RBC % 0.0 (0.0-0.3) % Absolute Neutrophils 12.33 H (1.2-6.7) 10^3/uL Absolute Lymphocytes 0.71 L (1.2-3.4) 10^3/uL Absolute Monocytes 0.32 (0.1-0.8) 10^3/uL Absolute Eosinophils 0.25 (0.0-0.7) 10^3/uL Absolute Basophils 0.05 (0.0-0.2) 10^3/uL VBG pH 7.44 H (7.31-7.41) VBG pCO2 32 L (41-51) mmHg VBG pO2 49 mmHg VBG HCO3 22 L (23-28) mmol/L VBG Total CO2 20 L (24-29) mmol/L VBG O2 Saturation 87 % VBG Base Excess -2 (-2-3) mmol/L Sodium 140 (136-145) mmol/L Potassium 3.0 L (3.5-5.1) mmol/L Chloride 106 (98-107) mmol/L Carbon Dioxide 21.6 (21.0-32.0) mmol/L Anion Gap 12.4 H (3-11) mmol/L BUN 8 (7-18) mg/dL Creatinine 0.9 (0.55-1.02) mg/dL Est GFR (CKD-EPI 2020) 90.98 (mL/min/1.73m2) Glucose 158 H (74-106) mg/dL Calcium 9.0 (8.5-10.1) mg/dL Urine Color Yellow (Yellow) Urine Clarity Clear (Clear) Urine pH 6.0 (5-8) Ur Specific [place] 1.010 (1.005-1.025) Urine Protein Negative (Neg-Trace) mg/dL Urine Ketones Negative (Negative) mg/dL Urine Blood Negative (Negative) Urine Nitrite Negative (Negative) Urine Bilirubin Negative (Negative) Urine Urobilinogen 0.2 (Up to 0.2) mg/dL Ur Leukocyte Esterase Negative (Negative) Urine Glucose Negative (Negative) mg/dL COVID-19 Source Nasopharynx SARS-CoV-2 (PCR) Negative (Negative) Influenza Type A (PCR) Negative (Negative) Influenza Type B (PCR) Negative (Negative) RSV (PCR) Negative (Negative) Intake and Output - 24 Hour Total 05/03/24 15:42 thru 05/03/24 21:38 Intake Total 230 Balance 230 Weight 117.934 kg Intake: IV 230 Falls Risk Assessment History of Falls No History 05/03/24 21:38 Contributing Factors No Factors 05/03/24 21:38 Ambulatory Aids Independent 05/03/24 21:38 Tubes/Lines W/no contributing factors 05/03/24 21:38 Gait Evaluation No gait disturbance 05/03/24 21:38 Cognition No cognitive impairment 05/03/24 21:38 Fall Total Score 10 05/03/24 21:38 Level of Risk Standard/Low Risk 05/03/24 21:38 Problems (Last Reviewed 05/03/24 @ 20:27 by Marcos Phillips) Acute exacerbation of moderate persistent extrinsic asthma (Acute) Acute hypoxic respiratory failure (Acute) Pneumonia (Acute) Major depressive disorder (Chronic) v v v v v v v v v Sending and/or Receiving Nurses: Please use comment section below to note any information pertinent to the patient hand-off not included above. Information / Comments: Came in to ER w/ difficulty breathing, shows R sided pneumonia. On 4L O2 sating 92-94. Fluvid sent, Hr tachy 120-130s given albuterol in ER. 20g L AC. BP 147/80 16-25resps. Ind. On tele. Report received from: Meche called [phone]
[2024-05-03] MEDS: DOXYCYCLINE 100 MG in Normal Saline 100 ML IVPB (23:29)
[2024-05-04] VITALS (13 sets, daily range): BP systolic 116–151; BP diastolic 74–100; PULSE 78–119; RESP 5–20; TEMP 36.2–36.9; O2SAT 92–98
[2024-05-04] MEDS: methylPREDNISolone SUCC 40 MG VIAL 80 MG IVP ×2 (00:36→10:07)
[2024-05-04] MEDS: Acetaminophen 325 MG TAB PO ×2 (02:02→13:52)
[2024-05-04] MEDS: Albuterol/Ipratropium 3 ML UPD VIAL UPD ×5 (02:05→23:53)
[2024-05-04 07:10] LABS: HCT 44.7 % (36.0-46.0); HGB 14.3 g/dL (11.2-15.7); MCH 26.5 pg (27.0-33.0); MCV 83 fL (80-95); Platelet Count 347 10^3/uL (130-400); RBC 5.39 10^6/uL (3.93-5.22); RDW 14.4 % (11.7-14.6); RDW-SD 43.3 fL; WBC 12.69 10^3/uL (4.4-10.8)
[2024-05-04 07:41] LABS: ALT 18 U/L (14-59); AST 17 U/L (15-37); Albumin 3.8 g/dL (3.4-5.0); Alkaline Phosphatase 71 U/L (46-116); Anion Gap 11.7 mmol/L (3-11); BUN 8 mg/dL (7-18); CO2 21.3 mmol/L (21.0-32.0); CREATININE 0.7 mg/dL (0.55-1.02); Calcium 9.5 mg/dL (8.5-10.1); Chloride 108 mmol/L (98-107); Estimated GFR 123.01 (mL/min/1.73m2); Glucose 139 mg/dL (74-106); Magnesium 2.3 mg/dL (1.8-2.4); Sodium 141 mmol/L (136-145); Total Protein 8.6 g/dL (6.4-8.2)
[2024-05-04] MEDS: Albuterol 2.5 MG/3 ML INH SOLN VIAL UPD (09:16)
--- NOTE | 2024-05-04 09:51 | INITIAL_ITS ---
Date of service: 05/04/24 Time of Service: 09:51 Care Management Initial Assmt Initial Assessment Reason for Hospitalization: Acute hypoxic respiratory failure, exacerbation of asthma, PNA Functional Status/Living Situation Patient Presentation: Audrey Strong, was sitting up in bed when CM met with them. They stated that they are feeling a little better today, although they are still on supplemental O2. Per report, Audrey will likely be ready for discharge in 24-48H, depending on their progress. Audrey stated that they are hopeful to be home by , but feels comfortable at [facility], and feels that they are receiving good care. Audrey identified their mother, Elsa as a positive support, and stated that she will likely be present for discharge. CM will continue to follow. Town of Residence: [place] Resides with: Other (partner) Significant Other/Family: Local Natural Supports: MotherElsa Employment Status: Employed ([employer]) Instrumental Activities of Daily Living (ADLs): Independent Activities/Hobbies/SocialSupport: Audrey enjoys musicals/musical theater Medications Medication Management: No Issues/Barriers identified Physical Functioning/Mobility Assistive Device: None Advance Directives Advance Directives: Do you have an Advance Directive: N 04/17/13 22:12 AD On File at [facility]: N 04/17/13 22:12 Date Asked 05/03/24 05/03/24 16:34 AD Date Reviewed COLST On File at [facility] COLST Date Scanned Code Status Resuscitation Status Full Code Insurance Coverage/Financial Issues Insurance: MVP Financial assistance 85% Care Team Visit Care Team Role Provider Type Musa Choudhary NP Primary Care Provider NURSE PRACTITIONER Clarence Murillo MD Emergency Provider [facility] STAFF PHYSICIAN Marcos Phillips Admit Provider NON-[facility] STAFF PHYSICIAN Attending Provider Discharge Potential Discharge Needs: PCP F/U Appt Anticipated Barriers to Discharge: None Identified Patient/Family Education Needs: Review discharge instructions, discuss Ask Me Three Transportation: Private vehicle Plan: Anticipate Tae will return home once medically cleared. They will be driven home via private vehicle by family. They will follow up with their PCP and discharge plan of care. CM will continue to follow. PFSH All Active Problems Acute exacerbation of moderate persistent extrinsic asthma (Acute) Acute hypoxic respiratory failure (Acute) Pneumonia (Acute) Asthma (Chronic) ADHD (attention deficit hyperactivity disorder) (Chronic) IBS (irritable bowel syndrome) (Chronic) Generalized anxiety disorder (Chronic) Major depressive disorder (Chronic) Insomnia (Chronic) Obesity (Chronic) Nexplanon in place (Chronic) Inserted [facility] at [facility] Allergic rhinitis (Chronic) Medical History Pilonidal abscess of lorri cleft Surgical History S/P bilateral breast reduction (05/16/17) Family History Mother Asthma Hypertension Alcohol abuse Father Alcohol abuse Depression Osteomalacia Substance abuse Sister No problems noted. Maternal Grandfather Colon cancer Maternal Grandmother No problems noted. Paternal Grandfather No problems noted. Paternal Grandmother No problems noted. 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 Pets and animals: Yes Pets and animals: cat(s) Sexually active: Yes Do you think of yourself as: lesbian/avila/homosexual Current gender identity: neither exclusively male nor female What is your relationship status?: living with partner How often do you talk on the phone with friends or family?: three or more times per week How often do you get together with friends or relatives?: three or more times per week How often do you attend restorationism or jain services?: decline to answer Do you belong to any clubs or organized social groups?: no Panel score (0-1 are the most socially isolated patients): 2 What type of physical activity do you participate in: none Duration: decline to answer Frequency: decline to answer Consuelo/Restoration: Other Special consuelo needs: No Seatbelt use: always Helmet use: Yes Helmet use: always Drive intox or ride w/intox intermodal 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: No Do you feel safe at home: Yes Do you feel safe in your relationship?: Yes Female Reproductive History Menstrual control method: implanted (Nexplanon, inserted [facility] at [facility]) History History 0 Para Hx # Term Pregnancies Multiple births Hx # Pregnancies Ectopic pregnancies AB induced Hx Number of Living Children AB spontaneous SDOH(Care Management) Screening Will the Patient Participate in the Screening?: Yes Do you worry about having a steady place to live?: no Problems where you live: no known problems In the past 12 months, have you had to go without electric, gas, oil or water in your home?: no Have you or anyone in your house had to go without enough food to eat?: no Has lack of transportation kept you from medical appointments or from doing things needed for daily living?: no Has anyone in your support network made you feel unsafe for any reason?: no
[2024-05-04] MEDS: DOXYCYCLINE 100 MG in Normal Saline 100 ML IVPB ×2 (10:07→21:32)
[2024-05-04] MEDS: Enoxaparin 40 MG/0.4 ML SYR SC ×2 (10:07→21:25)
[2024-05-04] MEDS: Montelukast 10 MG TAB PO (10:08)
[2024-05-04] MEDS: Cetirizine 10 MG TAB PO (10:08)
[2024-05-04] MEDS: Normal Saline Flush 10 ML SYR IVP ×2 (10:12→20:49)
--- NOTE | 2024-05-04 16:38 | CHAPLAIN ---
Tae was sitting up in bed when I visited. She had a visitor with her. I explained my role and offered support.
--- NOTE | 2024-05-04 16:51 | CHAPLAIN ---
Tae was sitting up in bed when I visited. They were pleasant and easily engaged in a conversation. They had a visitor with them. I explained my role and offered support.
--- NOTE | 2024-05-04 17:31 | PGE_ITS ---
Date of Service Date of service: 05/04/24 Time of Service: 17:32 Assessment and Plan Assessment and plan (1) Pneumonia: Start date: 05/03/24 Status: Acute Assessment and plan: This is a 24-year-old lady who has exacerbation of asthma and right hilar pneumonia. She is hypoxic which is new and is still having difficulty breathing despite aggressive treatment of her bronchospasm. She will be admitted for IV antibiotic therapy, IV Solu-Medrol and aggressive nebulizer treatments. Long- term she should return to her controller therapy with rescue therapy. She also should consider stopping smoking of any substance. She is a full code. 05/04/2024 Patient is on Rocephin 1 g every 24 hours as well as doxycycline 100 mg every 12 hours. Qualifiers: Pneumonia type: due to unspecified organism Laterality: right Lung location: unspecified part of lung Qualified Code(s): J18.9 - Pneumonia, unspecified organism (2) Acute hypoxic respiratory failure: Start date: 05/03/24 Status: Acute Assessment and plan: Patient has had hypoxemia with respiratory alkalosis by VBG. Continue aggressive treatment of pneumonia and exacerbation of asthma and the should clear. Long-term she will most likely not need oxygen. 05/04/2022 Vital signs show 92% on 2 L nasal cannula. Will continue with oxygen support until her sats improve (3) Acute exacerbation of moderate persistent extrinsic asthma: Start date: 05/03/24 Status: Acute Assessment and plan: IV Solu-Medrol with aggressive nebulizer treatments long-term convert back to controller therapy with rescue therapy. Follow-up pulmonology with last visits canceled in 2022 and last seen in November 2021. 05/04/2024 I have changed the patient over to prednisone. Will monitor for improvements. Patient will be on 40 mg p.o. twice daily (4) Major depressive disorder: Status: Chronic Assessment and plan: Continue outpatient medical therapy. Qualifiers: Major depression recurrence: recurrent Active/Remission status: in remission of unspecified degree Qualified Code(s): F33.40 - Major depressive disorder, recurrent, in remission, unspecified Subjective Subjective Interval history since last seen: Patient seen and examined in her room this afternoon. Plan of care discussed with the patient as well as the multidisciplinary team during rounds today. Patient states that she does feel better but still has some muscle aches.. Exam Narrative Exam Narrative: General: Patient appears appropriate for age, in moderate distress. In shorter sentences during conversation but no tachypnea at rest. She is alert and oriented x 3. She is moderately obese. HEENT: Normocephalic, eyes with pupils equal and reactive to light symmetrically, extraocular movement intact and sclera anicteric. Oropharynx with normal mucosa and good dentition. Neck: Supple without JVD. Back: Normal posture without CVA tenderness. Lungs: Decreased aeration diffusely with scant inspiratory coarse crackles nonfocal lysing. No focal rales or rhonchi. Increased expiratory phase with expiratory wheeze. Breast: Exam deferred. Heart: Regular rate and rhythm with no murmurs or gallops appreciated. Abdomen: Obese contour, soft and nontender to palpation with no palpable hepatosplenomegaly. Genitalia/rectal: Exam deferred. Extremities: Without clubbing, cyanosis or pitting edema. Skin: Normal color, warm and dry. Neuro: Cranial nerves II through XII gross intact, no focalized motor deficits and no tremor. Psych: Normal affect and mood. No abnormal thought processes. Remote and recent memory grossly intact. Objective Last Vital Signs Temp 36.9 C 05/04/24 14:53 Pulse 78 05/04/24 14:53 Resp 20 05/04/24 14:53 BP 145/83 H 05/04/24 14:53 Pulse Ox 92 05/04/24 14:53 Laboratory Results - last 24 hr 05/03/24 05/03/24 05/03/24 18:53 20:00 21:13 WBC 13.72 H RBC 4.87 Hgb 13.1 Hct 39.8 MCV 82 MCH 26.9 L MCHC 32.9 RDW 14.0 Plt Count 293 MPV 9.4 Immature Gran % 0.4 Neutrophils % 89.9 Lymphocytes % 5.2 Monocytes % 2.3 Eosinophils % 1.8 Basophils % 0.4 Nucleated RBC % 0.0 Absolute Neutrophils 12.33 H Absolute Lymphocytes 0.71 L Absolute Monocytes 0.32 Absolute Eosinophils 0.25 Absolute Basophils 0.05 VBG pH 7.44 H VBG pCO2 32 L VBG pO2 49 VBG HCO3 22 L VBG Total CO2 20 L VBG O2 Saturation 87 VBG Base Excess -2 Sodium 140 Potassium 3.0 L Chloride 106 Carbon Dioxide 21.6 Anion Gap 12.4 H BUN 8 Creatinine 0.9 Est GFR (CKD-EPI 2020) 90.98 Glucose 158 H Calcium 9.0 Magnesium Total Bilirubin AST ALT Alkaline Phosphatase Total Protein Albumin Urine Color Yellow Urine Clarity Clear Urine pH 6.0 Ur Specific [place] 1.010 Urine Protein Negative Urine Ketones Negative Urine Blood Negative Urine Nitrite Negative Urine Bilirubin Negative Urine Urobilinogen 0.2 Ur Leukocyte Esterase Negative Urine Glucose Negative COVID-19 Source Nasopharynx SARS-CoV-2 (PCR) Negative Influenza Type A (PCR) Negative Influenza Type B (PCR) Negative RSV (PCR) Negative 05/04/24 05:35 WBC 12.69 H RBC 5.39 H Hgb 14.3 Hct 44.7 MCV 83 MCH 26.5 L MCHC 32.0 RDW 14.4 Plt Count 347 MPV 10.0 Immature Gran % Neutrophils % Lymphocytes % Monocytes % Eosinophils % Basophils % Nucleated RBC % Absolute Neutrophils Absolute Lymphocytes Absolute Monocytes Absolute Eosinophils Absolute Basophils VBG pH VBG pCO2 VBG pO2 VBG HCO3 VBG Total CO2 VBG O2 Saturation VBG Base Excess Sodium 141 Potassium 4.0 D Chloride 108 H Carbon Dioxide 21.3 Anion Gap 11.7 H BUN 8 Creatinine 0.7 Est GFR (CKD-EPI 2020) 123.01 Glucose 139 H Calcium 9.5 Magnesium 2.3 Total Bilirubin 0.50 AST 17 ALT 18 Alkaline Phosphatase 71 Total Protein 8.6 H Albumin 3.8 Urine Color Urine Clarity Urine pH Ur Specific [place] Urine Protein Urine Ketones Urine Blood Urine Nitrite Urine Bilirubin Urine Urobilinogen Ur Leukocyte Esterase Urine Glucose COVID-19 Source SARS-CoV-2 (PCR) Influenza Type A (PCR) Influenza Type B (PCR) RSV (PCR) PAWSS Have you Been Recently Intoxicated or Drunk Within the Last 30 days?: No Have you Ever Experienced Previous Episodes of Alcohol Withdrawal?: No Have you ever Experienced Withdrawal Seizures?: No Have you ever Experienced Delirium Tremens(DT)s?: No Have you ever undergone Alcohol Rehabilitation Treatment (i.e, inpt ot outpatient treatment programs)?: No Have you ever Experienced Blackouts?: No Have you ever Combined Alcohol with other Downers within the last 90 days?: No Have you ever Combined Alcohol with any other Substance of Abuse during the last 90 days?: No Positive Blood Alcohol level on Presentation? [PCS.BAL]: No Evidence of Increased Autonomic Activity (i.e. HR>120, tremor, sweating, agitation, nausea)?: No Result: 0 Time Spent with Patient Time Spent with Patient: >50 minutes Time was spent: preparing to see the patient(eg.review tests), obtaining and/or reviewing separately otained hiistory, ordering medications,tests, procedures, referring, communicating with other health healthcare or medical, indepentently interpreting results, counseling the patient and care coordination
[2024-05-04] MEDS: Budesonide/Formoterol 160/4.5 6 GM 60 PUFF INH IH (20:21)
[2024-05-04] MEDS: cefTRIAXone 1 GM/50 ML BAG IVPB (20:48)
[2024-05-04] MEDS: predniSONE 20 MG TAB 40 MG PO (20:49)
[2024-05-05] VITALS (9 sets, daily range): BP systolic 112–142; BP diastolic 72–93; PULSE 72–109; RESP 5–18; TEMP 36.4–37; O2SAT 92–98
[2024-05-05] MEDS: Mylanta Suspension 30 ML CUP PO (03:53)
[2024-05-05] MEDS: Albuterol/Ipratropium 3 ML UPD VIAL UPD ×2 (05:25→10:59)
[2024-05-05 07:00] LABS: HCT 41.8 % (36.0-46.0); HGB 13.5 g/dL (11.2-15.7); MCH 26.5 pg (27.0-33.0); MCHC 32.3 % (32.0-36.0); MCV 82 fL (80-95); MPV 9.6 fL (8.0-11.0); Platelet Count 394 10^3/uL (130-400); RBC 5.09 10^6/uL (3.93-5.22); RDW 14.8 % (11.7-14.6); RDW-SD 44.6 fL; WBC 17.09 10^3/uL (4.4-10.8)
[2024-05-05 07:20] LABS: ALT 15 U/L (14-59); AST 10 U/L (15-37); Albumin 3.8 g/dL (3.4-5.0); Alkaline Phosphatase 65 U/L (46-116); BUN 11 mg/dL (7-18); CREATININE 0.9 mg/dL (0.55-1.02); Calcium 9.4 mg/dL (8.5-10.1); Chloride 107 mmol/L (98-107); Estimated GFR 90.98 (mL/min/1.73m2); Glucose 168 mg/dL (74-106); Magnesium 2.1 mg/dL (1.8-2.4); Potassium 3.7 mmol/L (3.5-5.1); Sodium 139 mmol/L (136-145); Total Protein 8.1 g/dL (6.4-8.2)
[2024-05-05] MEDS: Budesonide/Formoterol 160/4.5 6 GM 60 PUFF INH IH (07:40)
[2024-05-05] MEDS: predniSONE 20 MG TAB 40 MG PO (09:00)
[2024-05-05] MEDS: Montelukast 10 MG TAB PO (09:00)
[2024-05-05] MEDS: Cetirizine 10 MG TAB PO (09:00)
[2024-05-05] MEDS: Normal Saline Flush 10 ML SYR IVP ×2 (09:01→10:57)
[2024-05-05] MEDS: Enoxaparin 40 MG/0.4 ML SYR SC (09:08)
[2024-05-05] MEDS: DOXYCYCLINE 100 MG in Normal Saline 100 ML IVPB (09:46)
--- NOTE | 2024-05-05 11:43 | W.PM.DS.N ---
Date of service: 05/05/24 Time of Service: 11:43 DS: Diagnosis Discharge Diagnosis (1) Pneumonia: Status: Acute (2) Acute hypoxic respiratory failure: Status: Acute (3) Acute exacerbation of moderate persistent extrinsic asthma: Status: Acute (4) Major depressive disorder: Status: Chronic Discharge Plan Disposition Patient Disposition: Home Condition: Good Discharge Details Reason For Visit: Acute hypoxic resp.failure,Exacerbation asthma,PNA Admit Date/Time: 05/03/24 20:47 Admit Provider: Marcos Phillips Attending Provider: Marcos Phillips Primary Care Provider: Musa Choudhary Hospital Course Hospital Course: Patient initially presented with signs and symptoms consistent with an acute exacerbation of asthma as well as community-acquired pneumonia. She was treated with steroids as well as antibiotics including ceftriaxone and doxycycline. Patient was also experiencing acute hypoxic respiratory failure was ultimately weaned off of supplemental oxygen. Given her overall improvement it was determined that she was stable for discharge home with an additional 5 days of p.o. prednisone as well as an additional 3 days of p.o. antibiotics. Home Meds and New Rx's Prescriptions: New prednisone 20 mg Tablet 40 mg PO DAILY Qty: 5 0RF doxycycline hyclate 100 mg capsule 100 mg PO BID Qty: 6 0RF cefpodoxime 100 mg tablet 100 mg PO BID Qty: 6 0RF Rx Instructions: must administer with a meal/food Continued cetirizine [Zyrtec] 10 mg tablet 10 mg PO DAILY Qty: 30 Nexplanon 68 mg implant 1 implant subdermal ONCE Rx Instructions: as a single dose trazodone 50 mg tablet 50 mg PO QHS Qty: 90 0RF triamcinolone acetonide 0.1 % cream 1 applic topical BID PRN (Reason: dermatitis) Qty: 30 0RF Rx Instructions: apply to affected area 2x daily x 2 week and as needed sertraline 100 mg tablet 100 mg PO DAILY Qty: 90 4RF Rx Instructions: Take 1 tablet daily montelukast [Singulair] 10 mg tablet 10 mg PO DAILY Qty: 90 4RF albuterol sulfate 90 mcg/actuation HFA aerosol inhaler 2 puff inhalation Q6H PRN (Reason: shortness of breath or wheezing) Qty: 6.7 3RF fluticasone propion-salmeterol [Advair Diskus] 250-50 mcg/dose blister with device 1 inh inhalation BID Qty: 60 5RF Discharge Instructions Activity:: Activity as Tolerated Equipment/Supplies:: No Equipment Needed Diet:: As Tolerated Discharge Orders Discharge Orders: Discharge Order (Routine); Ordered 05/05/24 Ordered By: Leland Larios DS: Summary Time Spent with Patient providing and/or coordinating discharge services: Greater than 30 minutes Status at Discharge Functional status at discharge: independent ambulation Overall status at discharge: patient is back to baseline Mental Status: mental status grossly normal Speech and Movement: speech and movement normal Mood: congruent mood Affect: normal affect Quality:SDOH Health Related Social Needs: No Data to Display Exam Narrative Exam Narrative: Well-appearing young female sitting up in bed in no acute distress, ANO x 4, heart regular rhythm, lungs with minimal end expiratory wheezing, but good air movement throughout, abdomen soft, nontender, nondistended Psych Mental Status: mental status grossly normal Speech and Movement: speech and movement normal Mood: congruent mood Affect: normal affect DS: Data Vitals/I&O Vitals and I&O: Vital Signs Temperature 98.4 F 05/05/24 11:15 Temperature Source Temporal Artery Scan 05/05/24 11:15 Pulse 109 H 05/05/24 11:15 Pulse Rhythm Regular 05/03/24 21:38 Pulse 123 H 05/03/24 21:20 Respiratory Rate 16 05/05/24 11:15 Respiratory Effort Short of Breath 05/03/24 21:38 Respiratory Depth Shallow 05/03/24 21:38 Respiratory Pattern Tachypnea 05/03/24 21:38 Blood Pressure 127/78 05/05/24 11:15 Blood Pressure Mean 99 05/03/24 19:16 Blood Pressure Position Sitting 05/03/24 19:08 Pulse Oximetry 93 05/05/24 11:15 Oxygen Delivery Method Room Air 05/05/24 11:15 Oxygen Flow Rate 0 05/05/24 11:15 Pain Level 2 05/05/24 09:11 Comment NURSE NOTIFIED. 05/04/24 11:26 Intake & Output 05/04/24 05/05/24 05/05/24 17:59 05:59 17:59 Intake Total 220 / 220 160 / 380 110 / 110 Balance 220 / 220 160 / 380 110 / 110 Weight 250 lb 10.649 oz 249 lb 12.54 oz Intake: IV 100 / 100 160 / 260 110 / 110 Oral 120 / 120 Other: Urine Color Yellow Urine Appearance Clear Comment patient voids independently in room. Data Completed and Pending Labs on day of discharge: Labs from last 24 hours 05/05/24 06:40 WBC 17.09 H RBC 5.09 Hgb 13.5 Hct 41.8 MCV 82 MCH 26.5 L MCHC 32.3 RDW 14.8 H Plt Count 394 MPV 9.6 Sodium 139 Potassium 3.7 Chloride 107 Carbon Dioxide 21.0 Anion Gap 11.0 BUN 11 Creatinine 0.9 Est GFR (CKD-EPI 2020) 90.98 Glucose 168 H Calcium 9.4 Magnesium 2.1 Total Bilirubin 0.40 AST 10 L ALT 15 Alkaline Phosphatase 65 Total Protein 8.1 Albumin 3.8 PFSH All Active Problems (Updated 05/05/24 @ 11:43 by Leland Larios MD) Acute exacerbation of moderate persistent extrinsic asthma (Acute) Acute hypoxic respiratory failure (Acute) Pneumonia (Acute) Asthma (Chronic) ADHD (attention deficit hyperactivity disorder) (Chronic) IBS (irritable bowel syndrome) (Chronic) Generalized anxiety disorder (Chronic) Major depressive disorder (Chronic) Insomnia (Chronic) Obesity (Chronic) Nexplanon in place (Chronic) Inserted 2020 at [facility] Allergic rhinitis (Chronic) Medical History Pilonidal abscess of cleft Surgical History S/P bilateral breast reduction (05/16/17) Family History Mother Asthma Hypertension Alcohol abuse Father Alcohol abuse Depression Osteomalacia Substance abuse Sister No problems noted. Maternal Grandfather Colon cancer Maternal Grandmother No problems noted. Paternal Grandfather No problems noted. Paternal Grandmother No problems noted. 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 Pets and animals: Yes Pets and animals: cat(s) Sexually active: Yes Do you think of yourself as: lesbian/avila/homosexual Current gender identity: neither exclusively male nor female What is your relationship status?: living with partner How often do you talk on the phone with friends or family?: three or more times per week How often do you get together with friends or relatives?: three or more times per week How often do you attend methodist or faith services?: decline to answer Do you belong to any clubs or organized social groups?: no Panel score (0-1 are the most socially isolated patients): 2 What type of physical activity do you participate in: none Duration: decline to answer Frequency: decline to answer Consuelo/Alevism: Other Special consuelo needs: No Seatbelt use: always Helmet use: Yes Helmet use: always Drive intox or ride w/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: No Do you feel safe at home: Yes Do you feel safe in your relationship?: Yes Female Reproductive History Menstrual control method: implanted (Nexplanon, inserted 2020 at [facility]) History History 0 Para Hx # Term Pregnancies Multiple births Hx # Pregnancies Ectopic pregnancies AB induced Hx Number of Living Children AB spontaneous Time Spent with Patient Time Spent with Patient: <45 minutes Time was spent: preparing to see the patient(eg.review tests), obtaining and/or reviewing separately otained hiistory, ordering medications,tests, procedures, referring, communicating with other health mall plant caretaker, indepentently interpreting results, counseling the patient and care coordination
--- NOTE | 2024-05-05 14:21 | PDOC.CMDIS ---
Date of service: 05/05/24 Time of Service: 14:21 LACE Index Scoring Tool Questions: Length of Stay (in days): 2 Was the patient admitted via the E.D.?: Yes Comorbidities: Chronic Pulmonary Disease E.D. Visits: 0 Answers: Total Score: 7 Risk of Readmission: Low Risk Care Management Discharge Plan Reason for Hospitalization: Acute hypoxic respiratory failure, asthma exacerbation Discharge Plan: Adinan will return home with no new services. CM provided a patient assistance packet, at their request, and brought it to the patient accounts department once it was filled out. Their mother drove them home via private vehicle. They will follow up with their PCP and discharge plan of care. They were happy to be returning home. Patient/Family Education Needs: Review discharge instructions and limitations, discussion of self care needs including ask me three. SDOH Health Related Social Needs: No Data to Display
== END 2024-05-05 13:00 | disposition home or self-care (01) | DRG 193 ==
LOC: ER 21:21 → MS 21:33
PROVIDERS: Admitting Provider Family Medicine; Emergency Provider Emergency Medicine; PCP Nurse Practitioner Family; Visit Provider Family Medicine
DX: J18.9 Pneumonia, unspecified organism (principal); J96.01 Acute respiratory failure with hypoxia; J45.41 Moderate persistent asthma with (acute) exacerbation; F33.40 Major depressive disorder, recurrent, in remission, unspecified; E87.3 Alkalosis; Z68.41 Body mass index [BMI] 40.0-44.9, adult; F12.90 Cannabis use, unspecified, uncomplicated; Z79.899 Other long term (current) drug therapy; F90.9 Attention-deficit hyperactivity disorder, unspecified type; K58.9 Irritable bowel syndrome, unspecified; F41.1 Generalized anxiety disorder; E66.9 Obesity, unspecified
CPT/HCPCS: 00123; 36415; 80048; 80053; 82805; 85027; 87637; 94640; 96365; 96367; 99291; J1650; 71046; 81003; 83735; 85025; 94664; 94760; 99223; 99233; 99239; J0696; J2919; J3475; J3480; J7512; J7613; J7620; J8540

== ENCOUNTER 2025-01-13 02:47 | Outpatient (CLI) | payer OTHER, SELFPAY ==
[2025-01-13 08:39] LABS: Hemoglobin A1C 5.4 % (<5.7)
[2025-01-13 09:13] LABS: Calculated LDL 87 mg/dL (<100); Cholesterol 141 mg/dL (<200); HDL Cholesterol 35 mg/dL (>or=50); TSH (W/Ref FT4) 1.91 uIU/mL (0.36-3.74); Triglyceride 96 mg/dL (<150)
== END 2025-01-13 02:48 | disposition home or self-care (01) ==
LOC: LBO 02:48
PROVIDERS: PCP Nurse Practitioner Family; Visit Provider Nurse Practitioner Family
DX: E66.9 Obesity, unspecified (principal); Z13.220 Encounter for screening for lipoid disorders; Z13.1 Encounter for screening for diabetes mellitus
CPT/HCPCS: 36415; 80061; 83036; 84443

== ENCOUNTER 2025-01-26 16:29 | Outpatient (REF) | payer SELFPAY ==
--- NOTE | 2025-01-26 16:00 | PAPFT_PTH ---
PATIENT: Tae Pino LOC: [facility] U#:[id number] AGE/SX: 25/F ROOM: RE01/26/[address]: Rocío Alonso NP : 2000 BED: DIS: 01/26/2025 SPEC #: [id number] RECD: 01/26/25 18:36 STATUS: ANGELITO REQ #: [id number] JEANINE: 01/26/25 16:[address]: Rocío Alonso NP DEPT: [facility] Cytology RECD BY: Arianna Quintero ENTERED: 01/26/25 18:36 SP TYPE: PAPFT OTHR DR: Musa Choudhary NP Tissues: 1 - CX/ENDOCX FOR PAP SMEARS Procedures: PAP THIN PREP/[facility] Screening Comments: [id number]
== END 2025-01-26 16:30 | disposition home or self-care (01) ==
LOC: LBN 16:29
PROVIDERS: PCP Nurse Practitioner Family; Visit Provider Nurse Practitioner Women's Health
DX: Z12.4 Encounter for screening for malignant neoplasm of cervix (principal)
CPT/HCPCS: 88142